=== PATIENT | male | born 1965 ===

== ENCOUNTER 2024-06-01 10:00 | Emergency (ER) | payer OTHER | END 2024-06-01 11:15 | LOC: JP.ED 10:00 | DX: Z04.1 Encounter for examination and observation following transport accident (principal); I10 Essential (primary) hypertension; E11.9 Type 2 diabetes mellitus without complications; F17.210 Nicotine dependence, cigarettes, uncomplicated; V89.2XXA Person injured in unspecified motor-vehicle accident, traffic, initial encounter | CPT/HCPCS: 82947; 99283; 99284 ==